=== PATIENT | male | born 1995 | race Caucasian/White ===

== ENCOUNTER 2018-12-17 03:20 | Emergency (ER) | payer SELFPAY ==
[2018-12-17] MEDS ORDERED: Propofol* 10 MG/ML 20 ML BTL IV PUSH ONE (03:30)
[2018-12-17] MEDS ORDERED: Morphine 4 MG/ML VIAL (1 ml) 4 MG/ML VIAL IV ONE (03:30)
[2018-12-17] MEDS ORDERED: Morphine 10 MG/ML VIAL (1 ml) ONE (03:33)
--- NOTE | 2018-12-17 03:33 | ED ---
Lower Extremity - HPI Summary HPI Summary: Patient is a 23 y/o M presenting to ED with complaints of right ankle deformity. Patient is accompanied by two friends. Patient's friend notes that the patient and another individual were wrestling tonight, patient was picked up and subsequently tackled to the ground. Patient sustained present injury as a result. Friend notes that the patient had been drinking alcohol tonight. On triage, pain is rated 9/10. Home medications and allergies are reviewed. - History of Current Complaint Chief Complaint: EDExtremityLower Stated Complaint: ANKLE INJURY PER PT FRIEND Hx Obtained From: Patient, Other: - friends Mechanism Of Injury: Other - wrestling Onset of Pain: Immediate, Prior to Arrival Onset/Duration: Still Present Severity Currently: Severe - 9/10 Pain Intensity: 9 Pain Scale Used: 0-10 Numeric - 9/10 Timing: Constant Location: Is Discrete @ - right ankle Associated Signs And Symptoms: Positive: Negative Aggravating Factor(s): Standing, Ambulation, Movement, Weight Bearing, Stairs Alleviating Factor(s): Nothing Able to Bear Weight: No - Allergies/Home Medications Allergies/Adverse Reactions: Allergies Allergy/AdvReac Type Severity Reaction Status Date / Time No Known Allergies Allergy Verified 12/17/18 03:24 PMH/Surg Hx/FS Hx/Imm Hx Sensory History: Denies: Hx Legally Blind, Hx Deafness Opthamlomology History: Denies: Hx Legally Blind EENT History: Denies: Hx Deafness Infectious Disease History: No Infectious Disease History: Denies: Traveled Outside the [place] in Last 30 Days - Family History Known Family History: Negative: Diabetes - Social History Alcohol Use: Weekly Substance Use Type: Reports: None Smoking Status (MU): Never Smoked Tobacco Review of Systems Negative: Fever Musculoskeletal: Other - POSITIVE - RIGHT ANKLE DEFORMITY All Other Systems Reviewed And Are Negative: Yes Physical Exam - Summary Physical Exam Summary: Appearance: Well-appearing, Well-nourished, lying in bed comfortable, somewhat intoxicated Skin: Warm, dry, no obvious rash Eyes: sclera anicteric, no conjunctival pallor ENT: mucous membranes moist Neck: deferred Respiratory: No signs of respiratory distress Cardiovascular: Appears well perfused, pulses are nml Abdomen: deferred Musculoskeletal: obvious deformity of the right ankle, foot is displaced posteriorly and medially to the leg, good perfusion to the leg, blanching of the skin overlying the distal tibia, no open fracture. Neurological: Awake and alert, mentation is normal, speech is fluent and appropriate Psychiatric: affect is normal, does not appear anxious or depressed Triage Information Reviewed: Yes Vital Signs On Initial Exam: Initial Vitals Temp Pulse Resp BP Pulse Ox 98.1 F 135 20 136/79 97 12/17/18 03:22 12/17/18 03:22 12/17/18 03:22 12/17/18 03:22 12/17/18 03:22 Vital Signs Reviewed: Yes Procedures - Procedure Summary Procedure Summary: Moderate sedation with appropriate monitoring equipment in place, was given 100 mg propofol with good effect, patient was responding slightly to noxious stimuli but was sedated well enough to reduce. Traction to ankle was applied, ankle repositioned well, patient was intact neurovascularly before and after procedure. Dr. Hillman was in attendance to help monitor the patient. - Joint Reduction Right Joint Reduction Site: ankle (R) Conscious Sedation: Yes Reduction Attempts: 1 Post Joint Reduction Film: joint reduced Diagnostics - Vital Signs Vital Signs Temp Pulse Resp BP Pulse Ox 12/17/18 03:22 98.1 F 135 20 136/79 97 - Laboratory Lab Statement: Any lab studies that have been ordered have been reviewed, and results considered in the medical decision making process. - Radiology right ankle x-ray Radiology Interpretation Completed By: ED Physician Summary of Radiographic Findings: RIGHT ANKLE X-RAY: FRACTURE DISLOCATION OF TALUS, DISLOCATED POSTERIORALLY AND LATERALLY, BIMALLEOLAR FRACTURE post reduction x-ray Radiology Interpretation Completed By: ED Physician Summary of Radiographic Findings: POST REDUCTION RIGHT ANKLE X-RAY SHOWED GOOD ANATOMICAL ALIGNMENT Re-Evaluation - Re-Evaluation First Eval Re-Evaluation Time: 03:40 Comment: Provider in room to perform sedation and reduction with Dr. Hillman. Second Eval Re-Evaluation Time: 06:30 Comment: Patient's mother was contacted with permission of patient, patient's mother states that they will follow up with their orthopedic surgeon in [place]. Lower Extremity Course/Dx - Course Course Of Treatment: Patient is a 23 y/o M presenting to ED with complaints of right ankle deformity. Patient is accompanied by two friends. Patient's friend notes that the patient and another individual were wrestling tonight, patient was picked up and subsequently tackled to the ground. Patient sustained present injury as a result. Friend notes that the patient had been drinking alcohol tonight. Physical exam showed obvious deformity of the right ankle, foot is displaced posteriorly and medially to the leg, good perfusion to the leg, blanching of the skin overlying the distal tibia, no open fracture. During ED course, patient received fluids, morphine 10 mg IV ED ONCE. RIGHT ANKLE X-RAY: FRACTURE DISLOCATION OF TALUS, DISLOCATED POSTERIORALLY AND LATERALLY, BIMALLEOLAR FRACTURE. Patient's case was discussed with Dr. Hillman, she is agreeable to assist with reduction. Moderate sedation with appropriate monitoring equipment in place, was given 100 mg propofol with good effect, patient was responding slightly to noxious stimuli but was sedated well enough to reduce. Traction to ankle was applied, ankle repositioned well, patient was intact neurovascularly before and after procedure. Dr. Hillman was in attendance to help monitor the patient. POST REDUCTION RIGHT ANKLE X-RAY SHOWED GOOD ANATOMICAL ALIGNMENT. Patient was given crutches. Patient will be discharged to home and will follow up with Dr. Rose's office first thing in the morning for further workup. - Diagnoses Provider Diagnoses: Fracture dislocation of right ankle - Physician Notifications Discussed Care Of Patient With: Janet Hillman Time Discussed With Above Provider: 03:40 Instructed by Provider To: Other Discharge - Sign-Out/Discharge Documenting (check all that apply): Patient Departure - discharge Patient Received Moderate/Deep Sedation with Procedure: Yes - Discharge Plan Condition: Improved Disposition: HOME Prescriptions: oxyCODONE/Acetamin 5/325 MG* [Percocet 5/325 TAB*] 2 tab PO Q4H PRN #15 tab MDD 6 tabs PRN Reason: Pain - Severe Patient Education Materials: Ankle Fracture (ED), Crutch Instructions (ED), Moderate Sedation (ED), Splint Care (ED) Referrals: Will Rose MD [Medical Doctor] - Additional Instructions: You are going to need surgery to properly heal this injury. Contact Dr. Rose' s office first thing in the morning and make an apppointment within the next couple of days. You cannot bear weight on the injured leg, use the crutches to get around but keep the leg elevated as much as possible. - Billing Disposition and Condition Condition: IMPROVED Disposition: Home - Attestation Statements Document Initiated by Scribe: Yes Documenting Scribe: DALLIN SU Provider For Whom Scribe is Documenting (Include Credential): JUAN LEUNG MD Scribe Attestation: I, DALLIN SU, scribed for JUAN LEUNG MD on 12/22/18 at 0337. Scribe Documentation Reviewed: Yes Provider Attestation: The documentation as recorded by the [email or web address] accurately reflects the service I personally performed and the decisions made by me, JUAN LEUNG MD Status of Scribe Document: Viewed Procedure Note: Sedation - Sedation/Analgesia Procedure: Reduction of right ankle Informed Consent Obtained: Yes Equipment in Room: Pulse Oximeter, Matrix Bath Operator Plan for Sedation: Moderate Sedation Previous Problem with Sedation: No - Pre-Procedure Exam Airway Exam:: Neck Extenstion: Full, Teeth: Normal - Post Procedure Eval Alert and Oriented: YES Normal Respiratroy Status: YES Controlled Nausea/Vomiting/Pain: YES Discharge Instructions Given: YES Complications: NONE Face to Face Atendance Began at: 03:40 Face to Face Attandanced Ended at: 03:53
[2018-12-17] MEDS ORDERED: NS 0.9% 1000 ML** 1,000 ML IV ONE (03:41)
[2018-12-17] MEDS ORDERED: Propofol* 500 MG/50 ML BTL ONE (03:42)
[2018-12-17 05:11] VITALS: BP 129/78
--- NOTE | 2018-12-17 13:28 | PN ---
Progress Note - Progress Note Date of Service: 12/16/18 Note: Final radiology ankle read: IMPRESSION: RIGHT ANKLE FRACTURE DISLOCATION R1F Pt. treated appropriately in the ED.
== END 2018-12-17 05:10 | disposition home or self-care (01) ==
LOC: ED 03:20
DX: S82.891A Other fracture of right lower leg, initial encounter for closed fracture (principal); Y93.72 Activity, wrestling
CPT/HCPCS: 27780; 96361; 96374; 96375; 99284; J2270; J2704